=== PATIENT | male | born 1985 | race Caucasian/White ===

== ENCOUNTER 2021-01-26 13:58 | Emergency (ER) | payer MEDICAID ==
[~2021-01-26] VITALS: Ht 170.2 cm; Wt 64.8 kg
[~2021-01-26 13:58] MED LIST: NO HOME MEDS; OMEP20TA23 PO
[2021-01-26 14:11] VITALS: BP 125/87
[2021-01-26] MEDS ORDERED: ketorolac trometh inj. 60 MG/2 ML VIAL IM ONE (14:15)
[2021-01-26] MEDS ORDERED: orphenadrine citrate 60mg/2ml inj. IM ONE ×2 (14:15→15:05)
[2021-01-26] MEDS ORDERED: ORPH100T2 PO (14:18)
[2021-01-26] MEDS ORDERED: KETO10TA2 PO (14:18)
== END 2021-01-26 15:20 | disposition home or self-care (01) ==
LOC: ER 13:59
DX: S33.9XXA Sprain of unspecified parts of lumbar spine and pelvis, initial encounter (principal); M54.50 Low back pain, unspecified; M62.830 Muscle spasm of back; Z72.89 Other problems related to lifestyle; Z56.0 Unemployment, unspecified; Z79.899 Other long term (current) drug therapy; X58.XXXA Exposure to other specified factors, initial encounter; Y93.89 Activity, other specified; Y92.89 Other specified places as the place of occurrence of the external cause; Y99.8 Other external cause status
CPT/HCPCS: 96372; 99284; J1885; J2360

== ENCOUNTER 2021-05-03 09:50 | Emergency (ER) | payer MEDICAID ==
[~2021-05-03] VITALS: Ht 170.2 cm; Wt 66.4 kg
[~2021-05-03 09:50] MED LIST changes: +KETO10TA2 PO; +ORPH100T2 PO
[2021-05-03 10:09] VITALS: BP 158/83
[2021-05-03] MEDS ORDERED: diazepam inj 5 MG/ML inj. IV ONE (10:10)
[2021-05-03] MEDS ORDERED: normal saline 1000ML IV soln IVB ONE (10:10)
[2021-05-03] MEDS ORDERED: ketorolac trometh. 30mg/ml inj. IV ONE (10:10)
[2021-05-03 11:00] LABS: EOSINOPHILS # (AUTO) 0.1 X10'3 (0-0.9)
[2021-05-03 11:02] LABS: BASOPHILS % (AUTO) 0.7 % (0-1); HEMATOCRIT 42.3 % (42.0-52.0); HEMOGLOBIN 14.9 g/dl (14.0-17.9); LYMPHOCYTES # (AUTO) 0.3 X10'3 (1.1-4.8); LYMPHOCYTES % (AUTO) 10.9 % (21-51); MEAN CORPUSCULAR HEMOGLOBIN 31.6 PG (27.0-31.0); MEAN CORPUSCULAR HGB CONC 35.1 g/dL (33.0-36.5); MEAN CORPUSCULAR VOLUME 90.1 FL (78-98); MEAN PLATELET VOLUME 7.5 FL (7.4-10.4); MONOCYTES # (AUTO) 0.5 X10'3 (0-0.9); MONOCYTES % (AUTO) 16.9 % (2-12); NEUTROPHILS % (AUTO) 68.5 % (42-75); PLATELET COUNT 196 X10'3 (140-440); RED CELL DISTRIBUTION WIDTH 13.1 % (11.5-14.5); WHITE BLOOD COUNT 2.9 X10'3 (4.5-11.0)
[2021-05-03 11:08] LABS: ALANINE AMINOTRANSFERASE 31 U/L (12-78); ALBUMIN 3.6 G/DL (3.4-5.0); ALBUMIN/GLOBULIN RATIO 1.2 (1.1-1.5); ALKALINE PHOSPHATASE 103 IU/L (46-116); ANION GAP 8 (8-16); ASPARTATE AMINO TRANSFERASE 23 U/L (10-37); BILIRUBIN,TOTAL 0.3 MG/DL (0.1-1.0); BLOOD UREA NITROGEN 8 MG/DL (7-18); BUN/CREATININE RATIO 8.7 (5.4-32.0); CALCIUM 8.9 MG/DL (8.5-10.1); CHLORIDE 103 MMOL/L (99-107); CREATININE 0.92 MG/DL (0.60-1.10); GLUCOSE 99 MG/DL (70-104); POTASSIUM 4.1 MMOL/L (3.5-5.1); SODIUM 140 MMOL/L (135-145); TOTAL CARBON DIOXIDE 29.2 MMOL/L (24-32); TOTAL PROTEIN 6.7 G/DL (6.4-8.2); eGFR > 90 ML/MIN
[2021-05-03 11:37] LABS: TOTAL CELLS COUNTED 100
[2021-05-03 11:38] LABS: LARGE PLATELETS FEW; PLATELET ESTIMATE NORMAL
== END 2021-05-03 11:51 | disposition home or self-care (01) ==
LOC: ER 09:50
DX: S13.4XXA Sprain of ligaments of cervical spine, initial encounter (principal); S06.0X9A Concussion with loss of consciousness of unspecified duration, initial encounter; M62.830 Muscle spasm of back; M54.2 Cervicalgia; R51.9 Headache, unspecified; Z72.89 Other problems related to lifestyle; Z56.0 Unemployment, unspecified; Z79.899 Other long term (current) drug therapy; W19.XXXA Unspecified fall, initial encounter; Y93.89 Activity, other specified; Y92.89 Other specified places as the place of occurrence of the external cause; Y99.8 Other external cause status
CPT/HCPCS: 36415; 70450; 72125; 80053; 85007; 85025; 85610; 86870; 86885; 86900; 86901; 86902; 86905; 99285